=== PATIENT | female | born 1975 | race Caucasian/White ===

== ENCOUNTER 2018-12-15 10:51 | Emergency (ER) | payer OTHER ==
[2018-12-15 11:42] VITALS: BP 118/81
[2018-12-15] MEDS ORDERED: Acetaminophen TAB* 325 MG PO ONE (12:13)
[2018-12-15] MEDS ORDERED: Al Hydrox/Mg Hydrox/Simet LIQ* 30 ML UDC PO ONE (12:20)
--- NOTE | 2018-12-15 12:24 | UC ---
General HPI - HPI Summary HPI Summary: Patient presents to urgent care with 3 complaints. 1) patient states her bilateral ears are clogged and popping. Patient states she thinks is related to her sinuses. Patient has been taking allergy medication every day has been helping but they continue to pop. No real pain. Patient with mild postnasal drip. No cough. No shortness of breath. 2) patient states she has a history of acid reflux. Patient states she's been taking ibuprofen for her tailbone pain and has been making her stomach feel nauseous and "acid" No fevers or chills. No vomiting. No belly distention. Patient states her pain is better which takes by mouth 3) patient reports anterior chest wall breast pain for approximately one month, maybe 2. Patient states pain is worse with movement. Patient states she she feels it more work when she is lifting and moving things. Patient takes Motrin for her tailbone that she injured when she fell. Patient states when she takes a sometimes her chest wall pain. Patient states bilaterally her 8 her breasts ache. No nipple discharge. No rash. No erythema. Patient has not taken anything for analgesia since yesterday. Patient states she doesn't think she is and she going to menopause but her normal. Approximately 3 weeks ago. Patient is sexually active. Patient's medications reviewed this visit. Pt is followed by PCP. Pt scheduled to see PCP on 12/24. - History of Current Complaint Chief Complaint: UCGeneralIllness Stated Complaint: EARS, NAUSEA Time Seen by Provider: 12/15/18 11:55 Hx Obtained From: Patient Hx Last Menstrual Period: 12/07/18 Onset/Duration: Gradual Onset Pain Intensity: 8 - Allergy/Home Medications Allergies/Adverse Reactions: Allergies Allergy/AdvReac Type Severity Reaction Status Date / Time indoor/outdoor Allergy Sneezing Uncoded 12/15/18 11:34 PMH/Surg Hx/FS Hx/Imm Hx Previously Healthy: Yes - Surgical History Surgical History: Yes Surgery Procedure, Year, and Place: [facility] 06/2015 - Family History Known Family History: Positive: Non-Contributory Negative: Blood Disorder - Social History Occupation: Employed Full-time Lives: With Family Alcohol Use: None Substance Use Type: None Smoking Status (MU): Former Smoker Type: Cigarettes When Did the Patient Quit Smoking/Using Tobacco: 2014 Review of Systems All Other Systems Reviewed And Are Negative: Yes Constitutional: Positive: Negative Skin: Positive: Negative Eyes: Positive: Negative ENT: Positive: Ear Ache, Sinus Congestion Respiratory: Positive: Negative Cardiovascular: Positive: Other - chest wall pain, breast pain Genitourinary: Positive: Negative Is Patient Immunocompromised?: No Physical Exam - Summary Physical Exam Summary: Vital Signs Reviewed: Yes A+Ox3, no distress, scrolling on phone Eyes: Conjunctiva Clear, MAGGY. EOM intact and full ENT: Hearing grossly normal TM visualized - fluid b/l TM, turbiantes boggy, mmoist, uvula midline, no exudate, no erythema Neck: Positive: Supple Respiratory: Positive: No respiratory distress, No accessory muscle use + CTA throughout no w/r Cardiovascular: RRR nl s1, s2 no m/r CBT <2 sec + diffuse tenderness anterior chest wall with gentle palpation. Full AROM upper extremity with reproducible chest wall pain with resistance breast symmetric, no nipple discharge, no puckering of tissue abd soft + BS nd, minimal epigastric disocmfort with palpation no guarding, no distension Musculoskeletal Exam: JENNINGS x 4 without difficulty Strength Intact, ROM Intact Neurological: Positive: Alert, + sensation throughout Psychological: Positive: Normal Response To Family Skin: Positive: no rash, no ecchymosis Triage Information Reviewed: Yes Vital Signs: Initial Vital Signs Temp 98.4 F 12/15/18 11:35 Pulse 75 12/15/18 11:35 Resp 16 12/15/18 11:35 BP 118/81 12/15/18 11:35 Pulse Ox 99 12/15/18 11:35 Diagnostics - Radiology No standard instances Radiology Interpretation Completed By: Radiologist - Patient Name: ROBERT BAUMAN Medical Record#: [id number] Ordering Physician: Carol Anderson MD Acct.#: [id number] : 1975 Age: 43 Sex: F Location: [facility] Exam Date: 12/15/18 1211 ADM Status: REG ER Order Information: CHEST PA & LAT 2 VWS Accession Number: [id number] CPT: 87202 HISTORY: chest wall pain, cough, smoking hx COMPARISONS: None relevant available at the time of dictation. VIEWS: 4: Frontal dual-energy and lateral views of the chest. FINDINGS: CARDIOMEDIASTINAL SILHOUETTE: The cardiomediastinal silhouette is normal. ANAIS: The anais are normal. PLEURA: The costophrenic angles are sharp. No pleural abnormalities are noted. LUNG PARENCHYMA: The lungs are clear. ABDOMEN: The upper abdomen is clear. There is no subphrenic gas. BONES AND SOFT TISSUES: Degenerative changes are noted of the spine OTHER: None. IMPRESSION: NO ACTIVE CARDIOPULMONARY DISEASE. <Electronically signed by Gautam Raphael MD in OV> 12/15/181243 Dictated By: Gautam Raphael MD Dictated Date/Time: 12/15/181243 Transcribed Date/Time: 12/15/181243 Copy to: CC:Shobha Olson MD; Carol Anderson MD Imaging - [facility] Imaging - [place] [facility] [address] [place] [address] ph ([phone]) ph ([phone]) ph ([phone]) This report is only to be considered final once signed by the Provider(s) as displayed in the "<Electronically Signed by >" field (s). Absence of a signature indicates the report is in a draft status and still needs to be finalized. In the event this document was created by someone other than the signing Provider, the individual initiating the document will be listed in the "Entered by:" or "Dictated by:" murillo. 1 of 1 Re-Evaluation - Re-Evaluation First Eval Change: Improved - Maalox resolved burnig pain APAP helped "little" reviewed CXR and plan of care pt comfortable with plan Course/Dx - Course Course Of Treatment: Patient presents to urgent care with 3 complaints. One, patient states she's has is progressive anterior chest wall pain for approximately one month. Patient states is worse with movement, carrying things, and deep breathing. Patient is not short of breath. On exam patient with diffuse anterior chest wall pain. Pain is all reproducible with direct palpation as well as range of motion against resistance. Patient states her breasts hurt as well. Patient's breasts are somewhat pendulous. Will to check test and then do a chest x-ray. If this is normal anticipate heat, stretch, Motrin Tylenol. We' ll go this Tylenol here. Two, patient states she's been having a slight increase in her GERD symptoms since taking Motrin for her tailbone pain. Patient with mild epigastric discomfort but otherwise non-concerning abdominal exam. We'll give dose of Maalox year. 3, patient reports pressure ears. Patient's on allergy medicine. Patient was scant fluid in both ears. Patient with some information of her tries. No concern for active infection this time. We'll give patient a prescription for Flonase. Discussed with patient at length comfortable in agreement with plan.. - Diagnoses Provider Diagnosis: Chest wall pain, GERD (gastroesophageal reflux disease), Congestion of both ears Discharge - Sign-Out/Discharge Documenting (check all that apply): Patient Departure All imaging exams completed and their final reports reviewed: Yes - Discharge Plan Condition: Stable Disposition: HOME Prescriptions: Fluticasone NASAL SPRAY 50MCG* [Flonase NASAL SPRAY 50MCG*] 2 spray BOTH NARES DAILY #1 btl Patient Education Materials: Allergic Rhinitis (ED), Gastroesophageal Reflux Disease (ED), Chest Wall Pain (ED) Referrals: Shobha Olson MD [Primary Care Provider] - Additional Instructions: Okay to alternate ibuprofen (Advil, Motrin) and Tylenol every 3 hours for pain or fever. Take with food. Do NOT take for more than 4-5 days. - apply heat to your chest wall - slow, gentle stretching exercises are important - For your stomach: Okay to take tums or maalox. Slow, frequent foods are important. Avoid spicy food, acidic foods, tomato based foods - For your ears - continue to take allergy medication. You have been prescribed a nasal spray - it is recommended you take as prescribed Keep your follow-up appointment as scheduled with your primary doctor in 10 days - Billing Disposition and Condition Condition: STABLE Disposition: Home
== END 2018-12-15 13:15 | disposition home or self-care (01) ==
LOC: UCCORT 10:51
DX: R07.9 Chest pain, unspecified (principal); K21.9 Gastro-esophageal reflux disease without esophagitis; H83.8X3 Other specified diseases of inner ear, bilateral; Z87.891 Personal history of nicotine dependence
CPT/HCPCS: 71046; 84702; 93005; 99212; A9270-GY; G0463